=== PATIENT | male | born 1940 | race Caucasian/White ===

== ENCOUNTER → 2017-04-21 | Outpatient (CLI) | payer OTHER, MEDICARE ==
[~2017-04-21] VITALS: Ht 162.6 cm; Wt 66.2 kg
[~2017-04-21] MED LIST: ADULT LOW DOSE81 MG; ALEVE220 MG PO; ARICEPT 5 MG TAB5 MG PO; ASPIR 8181 MG PO; IBUPROFEN 200200 M1 PO; IBUPROFEN200 M2 PO; MULTIVITAMINS; MULTIVITAMINS1 EAC7; NAPROSYN500 MG PO; NEURONTIN 300300 M1 PO; NEURONTIN300 MG PO; OMEGA-31000 M1; POTASSIUM99 M1 PO; PRIMIDONE50 MG PO; TRAMADOL 50 MG50 MG PO
--- NOTE | ~2017-04-21 | HPC ---
[facility] [address] [place] [address] PAIN MANAGEMENT CONSULTATION Name: RAHULDARIUS SR Room #: REG [facility].#: [id number] Admission: 04/21/17 Attend Phys: Marino Al DO Discharge: Date of : 41 Report #: [id number] THIS REPORT FOR: //name// CC: Marino Voss MD DATE OF SERVICE: 04/21/2017 REFERRING PHYSICIAN: Amos Voss MD CHIEF COMPLAINT: Low back pain, right lower extremity pain and paresthesias. HISTORY OF PRESENT ILLNESS: As you know, the patient is an extremely pleasant 76-year-old male who returns today in followup visit for continue medication therapy. The patient complains pain level of 0/10 while on gabapentin, raises to levels of 6/10 without the gabapentin. He indicates that he is taking the gabapentin up to 900 mg at night with good efficacy, he is having no side effects to the therapy including somnolence, decrease in mental acuity, disorientation and confusion. He states without the medication, his pain is intolerable. He returns today in followup visit requesting refill on medications, noting no side effects, he states the pain is chronic, aching, numbness and tingling in sensation, exacerbated with activity, improves with medications. ALLERGIES: No known drug allergies. CURRENT MEDICATIONS: primidone 50 mg twice a day, Gabapentin 900 mg p.o. at bedtime, multivitamin 1 tab per day, aspirin 81 mg per day, and ibuprofen 200 mg p.r.n. SOCIAL HISTORY: The patient denies tobacco, IV or illicit drug use. He is working, not receiving workmen's compensation, unaccompanied today. IMAGING: No new imaging available. PQRS: The patient has no known osteoarthritis or rheumatoid arthritis. He has pain intensity today 0/10. He is not a fall risk, has not had a fall in 3 months. He is not on blood thinners. He is not treated for hypertension. He is not on chronic opioids. He has a low assessment for risk of opioid dependency. His functional assessment / pain impact 0/70. PHYSICAL EXAMINATION: VITAL SIGNS: Blood pressure 103/61, pulse 65, respiratory rate 14 and unlabored, the patient is 100% on room air, height 5 feet 4 inches tall, weight 146 pounds, and BMI calculated 25. [address] [address] PAIN MANAGEMENT CONSULTATION Name: DARIUS KAY Room #: REG CL Deirdre#: [id number] Admission: 04/21/17 Attend Phys: Marino Al DO Discharge: Date of : 41 Report #: [id number] GENERAL: Well-developed, well-nourished, well-hydrated 76-year-old male, appearing his stated age, he is placing current pain score 0/10. HEENT: Normocephalic, atraumatic. Pupils are equal, round, and reactive to light. Extraocular muscles are intact. Speech is fluent. LUNGS: Clear, no wheeze, rhonchi or rales. CARDIOVASCULAR: Regular. No appreciable gallop or rub. ABDOMEN: Soft, nontender. EXTREMITIES: Show no clubbing, no cyanosis, and no edema. MUSCULOSKELETAL: Lower extremity strength appears symmetrical 5/5. He is intact to light touch from L1 through S2 dermatomes. Muscle bulk and tone equal and symmetrical in lower extremities. Seated straight leg raising negative. Supine straight leg raising negative. Eduardo's test negative. Modified Gaenslen's positive for some axial back pain. ASSESSMENT: 1. Symptomatic lumbar radiculopathy. 2. Displacement of lumbar intervertebral disk with radiculopathy. 3. Lumbosacral spondylosis with radiculopathy. 4. Chronic intractable pain. PLAN: 1. The patient returns today in followup visit for continuation of medication therapy. He feels medications are working quite beneficially for pain control. The patient has trialled days where he is not taking his gabapentin and he notes instantaneous return of symptoms up to a level of 7-8/10. The patient indicates with medications, pain is about 0/10. He is denying any side effects of somnolence, decrease in mental acuity, disorientation, confusion with the medication, he feels it is working beneficially for pain control. He wishes to continue the medication at current dosing. 2. The patient was provided a prescription of gabapentin 300 mg dose 3 tabs p.o. at bedtime, I have given the patient #90 with 11 refills, 1 year of medication. I did advise the patient if he has any concerns with the medication, side effects of any kind, he is to contact our clinic and possible return visit, otherwise we will see him back in followup visit as he is doing very well with the medication and has had no side effects to date. We will make ourselves available if the patient needs to return. 3. I did discuss with the patient other options for treatment at this point, he feels medications are working well and does not wish any alteration in therapy at this appointment. <ELECTRONICALLY SIGNED> By: Marino Al DO 05/04/17 [id number] Marino Al, DO /nt
[2017-04-21 10:04] VITALS: BP 103/61
== END ==
LOC: PAIN 07:09
DX: M47.27 Other spondylosis with radiculopathy, lumbosacral region (principal); M51.16 Intervertebral disc disorders with radiculopathy, lumbar region; G89.4 Chronic pain syndrome; M79.661 Pain in right lower leg; R20.0 Anesthesia of skin

== ENCOUNTER → 2018-06-07 | Outpatient (CLI) | payer OTHER, MEDICARE ==
[~2018-06-07] VITALS: Ht 162.6 cm; Wt 65.0 kg
[2018-06-07 09:28] VITALS: BP 96/93
--- NOTE | 2018-06-07 09:38 | NUR ---
Pain Clinic Assessment: 1. History of Osteoarthritis: Not Applicable History of Rheumatoid Arthritis: Not Applicable 2. Height: 5 ft. 4 in. 162.6 cm. Weight: 143.2 lb. oz. 64.955 kg. Patient's BMI: 24.6 3. Vital Signs: BP: 96/93 Pulse: 75 Resp: 14 Temp: 02 Sat: 98 ECG Mon: 4. Pain Intensity: 0 5. Fall Risk: Dizziness: N Needs help standing or walking: N Fallen in the last 3 months: N Fall risk comments: 6. Patient on Blood Thinner: None 7. History of Hypertension: N 8. Opioid Therapy greater than 6 weeks: N Opiate Contract Signed: 9. Risk Assessment Tool Provided: LOW RISK 0 10. Functional Assessment Tool: 0 11. Recreational Drug Use: Never Drug Type: Tobacco Use: Never Smoker Tobacco Type: Amount or Packs/day: How Many Years: Alcohol Use: Yes Frequency: Weekly Quant: 1
== END ==
LOC: PAIN 06:53
DX: G89.29 Other chronic pain (principal); M79.604 Pain in right leg; Z72.89 Other problems related to lifestyle

== ENCOUNTER → 2019-08-29 | Outpatient (CLI) | payer OTHER, MEDICARE ==
[~2019-08-29] VITALS: Ht 162.6 cm; Wt 64.9 kg
--- NOTE | ~2019-08-29 | HPC ---
[facility] [place] [address] [place] [address] PAIN MANAGEMENT CONSULTATION Name: RAHULDARIUS HAM Room #: REG [facility] Deirdre#: [id number] Admission: 08/29/19 Attend Phys: Ham Al DO Discharge: Date of : 41 Report #: [id number] THIS REPORT FOR: cc: DECLAN - Eleanor family physician/PCP DECLAN - Eleanor family physician/PCP Ham Al DO ~ CC: [facility] physician/PCP Ham Clemente M.D. DATE OF SERVICE: 08/29/2019 REFERRING PHYSICIAN: Willy Clemente M.D. CHIEF COMPLAINT: Cervical radiculopathy. HISTORY OF PRESENT ILLNESS: As you know, the patient is a 78-year-old male who has been referred to our clinic for cervical radicular symptoms involving left neck and left upper extremity. He was seen by Neurology recently and advised to trial interventional treatment options. It was determined his symptoms were likely due to cervical radiculopathy. He was started on gabapentin and tizanidine by the Neurology team, but this has provided no benefit. Due to lack of improvement with conservative treatment options, the patient was sent to our clinic to discuss interventional treatments that might be necessary. The patient denies no injury, no trauma to the cervical spine that may have led to symptom development. We had followed the patient in the past for low back pain and lower extremity pain. This is a new distribution of symptoms with the patient. He states that he has been experiencing this for an extended period of time. ALLERGIES: No known drug allergies. CURRENT MEDICATIONS: Aricept 10 mg once a day, gabapentin 300 mg once a day, Namenda 10 mg once a day, primidone 50 mg once a day. SOCIAL HISTORY: The patient denies tobacco, alcohol, IV or illicit drug use. He is retired. He is unaccompanied today. IMAGING: No new imaging available. PQRS: The patient has known arthritic changes of the cervical spine, lumbar spine, bilateral hips, no rheumatoid arthritis. He is not treated for hypertension, nor is on any blood thinners. He is on chronic opioids, has a low opiate addiction potential. Pain impact score is 0/70. No interference of daily activities secondary to pain. He is not a fall risk and has not had a fall in last [address] [address] PAIN MANAGEMENT CONSULTATION Name: DARIUS KAY Room #: REG [facility]#: [id number] Admission: 08/29/19 Attend Phys: Ham Al DO Discharge: Date of : 41 Report #: [id number] PHYSICAL EXAMINATION: VITAL SIGNS: Blood pressure 128/74, pulse 59, respiratory rate 18 and unlabored. The patient is 96% on room air. Height 5 feet 4 inches tall, weight 143 pounds, BMI calculated 24.5. GENERAL: Well-developed, well-nourished, well-hydrated, 78-year-old male. He appears stated age. He is complaining of pain 0-7/10 depending on activity. HEENT: Normocephalic, atraumatic. Pupils equal, round and reactive. EXTREMITIES: Show no clubbing, no cyanosis, no edema. MUSCULOSKELETAL: Upper extremity strength appears symmetrical 5/5, intact to light touch from C5 through T1 dermatomes. Spurling's test is equivocal. Motor strength is equal and symmetrical as his motor tone in the upper extremities. He has normal gait and station. He is intact to pinprick and vibratory sensations throughout the upper extremities. ASSESSMENT: 1. Chronic neck pain. 2. Possible cervical radiculopathy. 3. Cervical spondylosis with radiculopathy. PLAN: 1. Based on today's physical exam and history the patient has provided, the description the patient gives in regards to pain as well as location of symptoms, it would appear the patient is suffering from cervical radicular symptoms. We have contacted the Neurology team to obtain imaging of the cervical spine although this is not available to us at this point. We have discussed with the patient the treatment options in generality for cervical radiculopathy. The following was discussed with the patient today. We discussed physical therapy, stretching exercises and traction techniques as a treatment course. We discussed adjustments in medication management. He has had good efficacy with gabapentin in the past to address his lumbar radiculopathy and this could be escalated to a higher level, which may improve his cervical radicular symptoms as well. We have also discussed with the patient interventional treatment such as cervical epidural injections and surgical options if necessary. The patient is hoping to delay any more aggressive treatment options in favor of medication management. 2. We will increase the patient's gabapentin. He is currently taking 1 tab p.o. at bedtime, recommend taking 1 tab in the morning, 2 tablets at night. This will escalate his dose of gabapentin and provide better improvement for neuropathic pain. He will watch for side effects of sleepiness, disorientation, confusion, mental slowing with its use. I have given the patient #90 tablets of the 300 mg dose with 2 refills, essentially 3 months' worth of medication. The patient will escalate his dose today. He will contact our clinic with any questions or concerns. We can further escalate the dose if necessary based on efficacy. [address] [address] PAIN MANAGEMENT CONSULTATION Name: DARIUS KAY HAM Room #: REG CL Deirdre#: [id number] Admission: 08/29/19 Attend Phys: Ham Al DO Discharge: Date of : 41 Report #: [id number] 3. We will see the patient back in followup visit on an as needed basis. We are hopeful the adjustments made in medication today will help provide the patient with better pain control. We will see him back in followup visit as needed. He can contact us or his Neurology team or his primary care physician for refills of the therapy if they are effective. 4. We wish to thank Dr. Clemente for the referral of this patient back to our clinic. We will keep you apprised of his response to treatment if we make any further adjustments in therapy. By: 0813 0916 Ham Al DO /nt
[2019-08-29 14:28] VITALS: BP 128/74
--- NOTE | 2019-08-29 14:37 | NUR ---
Pain Clinic Assessment: 1. History of Osteoarthritis: Not Applicable History of Rheumatoid Arthritis: Not Applicable 2. Height: 5 ft. 4 in. 162.6 cm. Weight: 143.0 lb. oz. 64.864 kg. Patient's BMI: 24.5 3. Vital Signs: BP: 128/74 Pulse: 59 Resp: 18 Temp: 02 Sat: 96 ECG Mon: 4. Pain Intensity: 7 AT WORST 5. Fall Risk: Dizziness: N Needs help standing or walking: N Fallen in the last 3 months: N Fall risk comments: 6. Patient on Blood Thinner: None 7. History of Hypertension: N 8. Opioid Therapy greater than 6 weeks: N Opiate Contract Signed: 9. Risk Assessment Tool Provided: LOW RISK 0 10. Functional Assessment Tool: 0/70 11. Recreational Drug Use: Never Drug Type: Tobacco Use: Never Smoker Tobacco Type: Amount or Packs/day: How Many Years: Alcohol Use: Yes Frequency: Quant:
== END ==
LOC: PAIN 07:01
PROVIDERS: ATTEND Anesthesiology Pain Medicine
DX: M47.22 Other spondylosis with radiculopathy, cervical region (principal); Z79.899 Other long term (current) drug therapy

== ENCOUNTER → 2020-07-24 | Outpatient (CLI) | payer OTHER, MEDICARE ==
[~2020-07-24] VITALS: Ht 162.6 cm; Wt 66.0 kg
[~2020-07-24] MED LIST changes: +NAMENDA 5 MG TAB5 M1 PO
[2020-07-24 10:18] VITALS: BP 120/67
--- NOTE | 2020-07-24 10:33 | NUR ---
Pain Clinic Assessment: 1. History of Osteoarthritis: Not Applicable History of Rheumatoid Arthritis: Not Applicable 2. Height: 5 ft. 4 in. 162.6 cm. Weight: 145.4 lb. oz. 65.953 kg. Patient's BMI: 24.9 3. Vital Signs: BP: 120/67 Pulse: 63 Resp: 16 Temp: 02 Sat: 98 ECG Mon: 4. Pain Intensity: 0 5. Fall Risk: Dizziness: Y Needs help standing or walking: N Fallen in the last 3 months: N Fall risk comments: 6. Patient on Blood Thinner: None 7. History of Hypertension: N 8. Opioid Therapy greater than 6 weeks: N Opiate Contract Signed: 9. Risk Assessment Tool Provided: LOW RISK 0 10. Functional Assessment Tool: 0 11. Recreational Drug Use: Never Drug Type: Tobacco Use: Never Smoker Tobacco Type: Amount or Packs/day: How Many Years: Alcohol Use: Yes Frequency: Daily Quant: 1
--- NOTE | 2020-07-30 09:34 | HPC ---
[facility] [address] [place] [address] PAIN MANAGEMENT CONSULTATION Name: RAHULDARIUS HAM DAVIS [id number] Admission: 07/24/20 Attend Phys: Ham Al DO Discharge: Date of : 41 Report #: [id number] THIS REPORT FOR: cc: DECLAN - Eleanor family physician/PCP FAM - No family physician/PCP Ham Al DO ~ DOC #: [id number] cc: MD Ham Samson DO DATE OF SERVICE: 07/24/2020 REFERRING PHYSICIAN: Dr. Amos Voss. CHIEF COMPLAINT: Neck pain, upper extremity pain. HISTORY OF PRESENT ILLNESS: As you know, the patient is a very pleasant 79-year-old male who was referred to our service for chronic neck pain, upper extremity pain with paresthesias, mainly on the left due to cervical radiculopathy. We have been treating the patient with conservative treatment with the use of gabapentin with near 100% improvement in overall pain. The patient continues to complain of minimal pain with his symptoms now that we have started him on gabapentin. He continues to participate in all daily activities including mowing his yard and his neighbor's yards. He is very pleased with response to medication. He is having no side effects including sleepiness, disorientation, confusion, mental slowing with their use. He returns today in followup visit requesting refill on medications, he has found quite beneficial for his neuropathic pain. He is accompanied by his today. They are discussing the possibility of moving to [place] in the [facility]. At this point, he has no definitive plans, but wishes to discuss that as well today. ALLERGIES: No known drug allergies. CURRENT MEDICATIONS: Ibuprofen 200 mg 4 times a day p.r.n., aspirin 81 mg per day, multivitamin one tab per day, primidone 50 mg twice a day, gabapentin 300 mg morning, 600 mg at night. SOCIAL HISTORY: The patient denies tobacco, alcohol or IV or illicit drug use. He is retired, retired years ago; accompanied by his , present in room today. IMAGING: No new imaging available. PQRS: The patient has known arthritic changes of the cervical spine, lumbar spine, bilateral hips, but no rheumatoid arthritis. He is placing current pain score at 0/10. He is not a fall risk, does not have fall in last 3 months. He [address] [address] PAIN MANAGEMENT CONSULTATION Name: DARIUS KAY HAM DAVIS [facility] [id number] Admission: 07/24/20 Attend Phys: Ham Al DO Discharge: Date of : 41 Report #: [id number] is not on any blood thinners, nor is he treated for hypertension. He is not on any chronic opioids, has a low opioid addiction potential. Pain impact today is 0/70. No interference of daily activities secondary to pain. PHYSICAL EXAMINATION: VITAL SIGNS: Blood pressure 120/67, pulse 63, respiratory rate 16 and unlabored. The patient 98% on room air. Height 5 feet 4 inches tall, weight 145.4 pounds, BMI calculated 24.9. GENERAL: Well-developed, well-nourished, well-hydrated 79-year-old male. He appears stated age, pain is rated today 0/10. HEENT: Normocephalic, atraumatic. Pupils are round and responsive. The patient's speech is fluent. He is deemed a good historian. He is wearing a mask in compliance with COVID-19 regulations. EXTREMITIES: Show no clubbing, no cyanosis. No appreciable edema. MUSCULOSKELETAL: Upper extremity strength appears symmetrical again today, 5/5. Muscle bulk and tone is equal and symmetrical comparing upper extremities. Spurling's test is remaining equivocal. Pain is generated on the left, but not in a dermatomal distribution. Negative right. Motor strength in billing representative is normal. Deep tendon reflexes are symmetrical in the biceps, brachioradialis and triceps. ASSESSMENT: 1. Chronic cervical radiculopathy. 2. Chronic neck pain. 3. Cervical spondylosis with radiculopathy. PLAN: 1. The patient returns today in followup visit for refill of medications. He feels medications are working quite well for pain control. In fact, he is placing his current pain score 0/10. Since the patient has been started on gabapentin 300 mg morning and 600 mg at night, he has had no significant pain reoccurrence. He has had no paresthesias, no numbness and tingling. He is extremely pleased with response to medication. He denies side effects of sleepiness, disorientation, confusion, mental slowing with its use. He wishes to continue medication at current dosing. 2. The patient was provided prescription of gabapentin 300 mg morning, 600 mg at night. He was given #90 tablets with 11 refills, one year of medication. He can continue to take the medication as directed. 3. The patient and I did discuss the possibility of him moving to [place], [place]. We encouraged the patient to look into this as his family is in [place] and he would have support from the family. His son is also pharmacist at [facility] in the area and he can help care for the patient. 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 I believe that he is considering this option. We would certainly be willing to provide the patient with medications to make that transition over to [address] [address] PAIN MANAGEMENT CONSULTATION Name: DARIUS KAY Room #: REG [facility] Deirdre#: [id number] Admission: 07/24/20 Attend Phys: Ham Al DO Discharge: Date of : 41 Report #: [id number] [place] and he can follow up with the pain physician out there if he wishes to do so. We will be available if necessary to help transition over to the [place] area with any prescriptions. 4. We plan to see the patient back in followup visit in approximately a year if he is still in the area. Otherwise, we will help coordinate his transition to [place]. Ham Al DO JEJ/NIS/UPE <ELECTRONICALLY SIGNED> By: Ham Al DO 07/30/20 0934 1110 [id number] Ham Al, DO /nt
== END ==
LOC: PAIN 06:54
PROVIDERS: ATTEND Anesthesiology Pain Medicine
DX: M47.22 Other spondylosis with radiculopathy, cervical region (principal); G89.29 Other chronic pain; Z79.891 Long term (current) use of opiate analgesic; Z79.899 Other long term (current) drug therapy